=== PATIENT | female | born 1990 | race Two or more races ===

== ENCOUNTER 2017-09-20 21:57 | Observation (INO) | payer SELFPAY ==
[2017-09-20] MEDS ORDERED: NS 0.9% 1000 ML* 1,000 ML IV ONE (22:07)
[2017-09-20] MEDS ORDERED: Ondansetron INJ* 2 MG/ML VIAL IV ONE (22:11)
--- NOTE | 2017-09-20 22:13 | ED ---
GI/ HPI - HPI Summary HPI Summary: 27-year-old female presents with abdominal pain and vomiting today. She states that she is on her period but it has been less and less every period. She states that she had abdominal cramps this morning. She states that she vomited once and then developed a burning in her chest and her upper abdomen. She denies any abdominal surgeries. She denies any pain with urination. She denies abnormal vaginal discharge. She denies any flank pain. She has never had these symptoms before. She denies eating anything different. She states that is having a burning in her chest now. She denies any fever or diarrhea. She took ibuprofen for her cramps this morning. She states abdominal pain is diffuse but is greatest in pelvic. She has an IUD. She has history of ovarian cysts. She does have von willebrand disease. - History of Current Complaint Chief Complaint: EDAbdPain Time Seen by Provider: 09/20/17 22:03 Stated Complaint: ABD PAIN Pain Intensity: 7 - Allergy/Home Medications Allergies/Adverse Reactions: Allergies Allergy/AdvReac Type Severity Reaction Status Date / Time aspirin Allergy See Comment Verified 09/20/17 22:07 Home Medications: Home Medications Levonorgestrel (Iud) [Mirena IUD] 20 mcg IU DAILY 09/20/17 [History Confirmed ] PMH/Surg Hx/FS Hx/Imm Hx Endocrine/Hematology History: Reports: Other Endocrine/Hematological Disorders - von willebrand disease Cardiovascular History: Denies: Hx Myocardial Infarction Infectious Disease History: No Infectious Disease History: Denies: Traveled Outside the [place] in Last 30 Days - Family History Known Family History: Negative: Renal Disease Review of Systems Negative: Fever Negative: Chest Pain Positive: Shortness Of Breath Positive: Abdominal Pain, Vomiting, Nausea. Negative: Diarrhea All Other Systems Reviewed And Are Negative: Yes Physical Exam Triage Information Reviewed: Yes Vital Signs On Initial Exam: Initial Vitals Temp Pulse Resp BP Pulse Ox 99.1 F 91 15 132/80 100 09/20/17 22:05 09/20/17 22:05 09/20/17 22:05 09/20/17 22:05 09/20/17 22:05 Vital Signs Reviewed: Yes Appearance: Positive: Pain Distress Skin: Positive: Warm, Dry Head/Face: Positive: Normal Head/Face Inspection Eyes: Positive: Normal, Conjunctiva Clear Respiratory/Lung Sounds: Positive: Clear to Auscultation, Breath Sounds Present Cardiovascular: Positive: Normal, RRR Abdomen Description: Positive: Soft, Other: - severe diffuse tenderness greatest suprapubic, rebound present, neg obturator. Negative: CVA Tenderness ( R), CVA Tenderness (L) Bowel Sounds: Positive: Present Musculoskeletal: Positive: Normal Neurological: Positive: Normal Psychiatric: Positive: Normal Diagnostics - Vital Signs Vital Signs Temp Pulse Resp BP Pulse Ox 09/20/17 22:05 99.1 F 91 15 132/80 100 - Laboratory Result Diagrams: 09/20/17 23:20 09/20/17 23:20 Lab Statement: Any lab studies that have been ordered have been reviewed, and results considered in the medical decision making process. - Ultrasound No standard instances Ultrasound Interpretation: Positive (See Comments) - 10cm heterogenous left adnexal mass with small to moderate amount of pelvic free fluid. Ultrasound Interpretation Completed By: Radiologist Re-Evaluation - Re-Evaluation First Eval Re-Evaluation Time: 23:54 Change: Improved Comment: feeling better but if moves pain is 10 out of 10. no more chest pain GIGU Course/Dx - Course Course Of Treatment: 27-year-old female presents with vomiting today. She states that she is on her period. She states that she had abdominal cramps this morning. She states that she vomited once and then developed a burning in her chest and her upper abdomen. She denies any abdominal surgeries. She denies any pain with urination. She denies abnormal vaginal discharge. She denies any flank pain. She has never had these symptoms before. She denies eating anything different. She states that is having a burning in her chest now. She denies any fever or diarrhea. She took ibuprofen for her cramps this morning. She states abdominal pain is diffuse but is greatest in pelvic. She has an IUD. on exam lungs CTA. severe diffuse tenderness greatest in pelvic region. u/s shows mass in left ovary at 10cm. wbc elevated at 14. crp normal. hcg normal. discussed with dr garcias who will see in ED due to extreme pain of patient. dr garcias saw patient in ED and will take to the OR. - Diagnoses Differential Diagnoses - Female: Gastroenteritis (Viral), Gastroenteritis ( Bacterial), Ovarian Cyst, Urinary Tract Infection Provider Diagnoses: Abdominal pain, Ovarian mass, left Discharge - Sign-Out/Discharge Documenting (check all that apply): Discharge - Discharge Plan Condition: Stable Disposition: ADMITTED TO [facility] Referrals: No Primary Care Phys,NOPCP [Primary Care Provider] - - Billing Disposition and Condition Condition: STABLE Disposition: [facility] [place]
[2017-09-20] MEDS ORDERED: Ketorolac INJ* 30 MG/ML 1 ML VIAL IV PUSH ONE (22:15)
[2017-09-20] MEDS ORDERED: Morphine INJ* 4 MG/ML 1 ML SYRINGE (NEW SYRINGE VERSION) IV ONE (23:02)
[2017-09-20 23:33] LABS: ABS Basophils 0 10^3/ul (0-0.2); ABS Eosinophils 0 10^3/ul (0-0.6); ABS Monocytes 0.8 10^3/ul (0-0.8); ABS Neutrophils 12.5 10^3/ul (1.5-7.7); ABS Nucleated RBC 0 10^3/ul; Eosinophil % 0.2 % (0-6); Hematocrit 35 % (35-47); Hemoglobin 11.8 g/dl (12.0-16.0); Lymphocyte % 6.7 % (25-47); Mean Corpuscular HGB Conc 34 g/dl (31-36); Mean Corpuscular Hemoglobin 30 pg (27-31); Mean Corpuscular Volume 89 fL (80-97); Mean Platelet Volume 7.3 um3 (7.4-10.4); Nucleated Red Blood Cells % 0; Platelet Count 279 10^3/ul (150-450); Red Blood Count 3.91 10^6/ul (4.0-5.4); Red Cell Distribution Width 13 % (10.5-15); White Blood Count 14.4 10^3/ul (3.5-10.8)
[2017-09-20] MEDS ORDERED: Morphine VIAL* 4 MG/ML VIAL (1 ml vial) IV ONE (23:43)
[2017-09-20 23:52] LABS: EGFR Non-African American 120.8 (>60)
[2017-09-21] LABS: Urine Appearance Clear; Urine Blood 1+ (Negative); Urine Color Yellow; Urine Ketones Negative (Negative); Urine Protein Negative (Negative); Urine Specific Gravity 1.013 (1.010-1.030); Urine Urobilinogen Negative (Negative)
[2017-09-21] MEDS ORDERED: Ondansetron INJ* 2 MG/ML VIAL IV ONE (00:43)
[2017-09-21] MEDS ORDERED: Dexamethasone IV* 4 MG/ML 1 ML (4 MG) ONE (03:02)
[2017-09-21] MEDS ORDERED: Ondansetron INJ* 2 MG/ML VIAL ONE (03:02)
[2017-09-21] MEDS ORDERED: Atracurium* 10 MG/ML 10 ML VIAL ONE (03:02)
[2017-09-21] MEDS ORDERED: fentaNYL* 50 MCG/ML 2 ML VIAL (100 MCG VIAL) ONE (03:02)
[2017-09-21] MEDS ORDERED: Propofol* 10 MG/ML 20 ML BTL IV PUSH ONE (03:02)
[2017-09-21] MEDS ORDERED: Midazolam* 1 MG/ML 5 ML VIAL (5 MG) ONE (03:02)
[2017-09-21] MEDS ORDERED: Bupivacaine 0.25% SDV* 30 ML ONE (03:10)
[2017-09-21] MEDS ORDERED: Phenylephrine IV* 40 MCG/ML 10 ML SYRINGE ONE (03:34)
[2017-09-21] MEDS ORDERED: oxyCODONE TAB* 5 MG TAB PO PRN (03:56)
[2017-09-21] MEDS ORDERED: Ondansetron INJ* 2 MG/ML VIAL IV PRN (03:56)
[2017-09-21] MEDS ORDERED: Naloxone* 0.4 MG/ML 1 ML VIAL IV PRN (03:56)
[2017-09-21] MEDS ORDERED: HYDROcodone/ACETAMIN 5-325 MG* 1 TAB PO PRN (03:56)
[2017-09-21] MEDS ORDERED: HYDROmorphone INJ* 1 MG/ML CARPUJECT SYRINGE IV PRN (03:56)
[2017-09-21] MEDS ORDERED: DiMENhydriNATE IV* 50 MG/ML VIAL IV PUSH PRN (03:56)
[2017-09-21] MEDS ORDERED: fentaNYL* 50 MCG/ML 2 ML VIAL (100 MCG VIAL) IV PRN (03:56)
[2017-09-21] MEDS ORDERED: Glycopyrrolate IV* 0.2 MG/ML 1 ML VIAL ONE ×2 (04:21→04:25)
[2017-09-21] MEDS ORDERED: Neostigmine Methylsulfate* 1 MG/ML 10 ML VIAL (1 mg/ml) ONE (04:21)
[2017-09-21] MEDS ORDERED: oxyCODONE/Acetamin 5/325 MG* TAB PO PRN (04:44)
[2017-09-21] MEDS ORDERED: oxyCODONE/Acetamin 5/325 MG* TAB ONE (05:20)
[2017-09-21 07:58] VITALS: BP 119/60
--- NOTE | 2017-09-21 08:20 | RAD ---
HISTORY: Pelvic pain COMPARISONS: None TECHNIQUE: Multiple transverse and longitudinal ultrasound images were obtained of the pelvis using grayscale, color Doppler, and spectral Doppler imaging using the transabdominal transducer. FINDINGS: UTERUS: The uterus measures 7.5 x 3.2 x 4.7 cm. The uterus is normal in shape, size, contour, and echotexture. ENDOMETRIUM: The endometrial stripe is smooth. The endometrium measures 0.4 cm in thickness. An IUD is noted centrally within the endometrial cavity towards the fundus. CUL-DE-SAC: There is simple fluid noted within the pelvic cul-de-sac. RIGHT OVARY: The right ovary measures 3.5 x 1.5 x 2.9 cm. Normal arterial and venous waveforms are identifiable within the ovary on spectral Doppler imaging. LEFT OVARY: Within the expected location of the left ovary, there is a heterogeneously hyperechoic mass with internal vascularity measuring approximately 8.9 x 10 x 6.5 cm in size. The ovaries cannot be distinguished from this mass. Arterial and venous flow is noted on spectral tracings of this mass. BLADDER: The visualized bladder is unremarkable. OTHER: None IMPRESSION: 1. 10 CM LEFT ADNEXAL MASS. THE DIFFERENTIAL INCLUDES ECTOPIC , PRIMARY OVARIAN NEOPLASM, OR LARGE HEMORRHAGIC CYST, THOUGH THIS LESION IS VASCULARIZED AND HEMORRHAGIC CYST IS NOT FAVORED. 2. IUD. 3. THERE IS SIMPLE FLUID NOTED WITHIN THE PELVIS. PRELIMINARY FINDINGS WERE DISCUSSED WITH DR. BASS BY DR. NGO AT APPROXIMATELY 11:43 PM ON SEPTEMBER 20, 2017
--- NOTE | 2017-09-21 09:59 | PN ---
Work Excuse - Work Note Work Note: The above employee has been evaluated on 09/21/17. The physician has instructed the employee concerning further work as described below. Work Status: [Out of work until 09/28/17 and/or seen in the office. ] Lolita Tam MD 09/21/17 0956
== END 2017-09-21 11:05 | disposition home or self-care (01) ==
LOC: ED 21:57 → OR 09-21 02:11 → SSU 09-21 05:46
PROVIDERS: ADMIT Obstetrics & Gynecology; ATTEND Obstetrics & Gynecology
PROC: 0WJP4ZZ Inspection of Gastrointestinal Tract, Percutaneous Endoscopic Approach (ICD-10-PCS; principal; 2017-09-21 04:02)
DX: N83.202 Unspecified ovarian cyst, left side (principal); R10.9 Unspecified abdominal pain; R06.02 Shortness of breath; R11.2 Nausea with vomiting, unspecified; Z97.5 Presence of (intrauterine) contraceptive device
CPT/HCPCS: 36415; 76856; 80053; 81003; 81015; 83690; 84702; 85025; 86141; 87077; 87086; 96374; 96375; 99285; A9270-GY; G0378; J1100; J1885; J2250; J2270; J2405; J2704; J2710; J3010

== ENCOUNTER 2018-05-10 18:07 | Emergency (ER) | payer OTHER ==
[2018-05-10] MEDS ORDERED: Albuterol/Ipratropium NEB.SOL* Albuterol 2.5 MG/Ipratropium 0.5 MG 3 ML INH ONE (19:56)
[2018-05-10] MEDS ORDERED: Ibuprofen TAB* 600 MG PO ONE (19:56)
[2018-05-10] MEDS ORDERED: Acetaminophen TAB* 325 MG PO ONE (19:56)
[2018-05-10] MEDS ORDERED: Albuterol 2.5 MG/3 ML NEB.SOL* (0.083%) INH ONE (19:57)
--- NOTE | 2018-05-10 20:10 | ED ---
Respiratory - HPI Summary HPI Summary: This patient is a 27 year old female presenting to [facility] accompanied by male host/hostess ground with a chief complaint of SOB and cough since 1 and a half weeks ago. Patient states that she also developed a fever yesterday of 101. She presents to ED because her SOB is persisting and she recently coughed up a small amount of blood. The pain is rated 7/10 in severity. Symptoms aggravated by nothing. Symptoms alleviated by nothing. The patient treated the sx with ibuprofen at 1400 today to very little relief. Patient additionally reports a sore throat, sinus congestion. Patient notes a hx of asthma. - History of Current Complaint Chief Complaint: EDThroatPain Stated Complaint: COLD LIKE SYMTOMS/FEVER Time Seen by Provider: 05/10/18 19:50 Hx Obtained From: Patient Onset/Duration: Sudden Onset, Still Present Current Severity: Moderate Pain Intensity: 7 Character: Cough (Productive) Sputum Amount: Scant Sputum Color: Red (Blood) Aggravating Factor(s): Nothing Alleviating Factor(s): Nothing Associated Signs and Symptoms: Fever, SOB, Sinus Discomfort - Allergy/Home Medications Allergies/Adverse Reactions: Allergies Allergy/AdvReac Type Severity Reaction Status Date / Time aspirin Allergy See Comment Verified 05/10/18 18:40 dextromethorphan Allergy Tachycardia Verified 05/10/18 20:25 PMH/Surg Hx/FS Hx/Imm Hx Previously Healthy: No Endocrine/Hematology History: Reports: Other Endocrine/Hematological Disorders - von willebrand disease Denies: Hx Anticoagulant Therapy Cardiovascular History: Reports: Other Cardiovascular Problems/Disorders - HR fast child Denies: Hx Myocardial Infarction GI History: Reports: Hx Ulcer Musculoskeletal History: Reports: Hx Scoliosis Comment Only: Other Musculoskeletal History - Curve spine Sensory History: Reports: Hx Contacts or Glasses Denies: Hx Hearing Aid Opthamlomology History: Reports: Hx Contacts or Glasses Psychiatric History: Reports: Hx Depression Infectious Disease History: No Infectious Disease History: Denies: Traveled Outside the [place] in Last 30 Days - Family History Known Family History: Negative: Renal Disease - Social History Occupation: Employed Full-time Alcohol Use: None Hx Substance Use: No Substance Use Type: Reports: None Hx Tobacco Use: No Smoking Status (MU): Never Smoked Tobacco Review of Systems Positive: Fever Positive: Sore Throat, Other - sinus congestion Positive: Shortness Of Breath, Cough - bloody sputum All Other Systems Reviewed And Are Negative: Yes Physical Exam - Summary Physical Exam Summary: VITAL SIGNS: Reviewed. GENERAL: Patient is a well-developed and nourished female who is lying comfortable in the stretcher. Patient is not in any acute respiratory distress. HEAD AND FACE: No signs of trauma. No ecchymosis, hematomas or skull depressions. No sinus tenderness. EYES: PERRLA, EOMI x 2, No injected conjunctiva, no nystagmus. EARS: Hearing grossly intact. Ear canals and tympanic membranes are within normal limits. MOUTH: Oropharynx within normal limits. NECK: Supple, trachea is midline, no JVD, no carotid bruit, no c-spine tenderness, neck with full ROM. Pharyngeal hyperemia no exudate, bilateral upper cervical adenopathy CHEST: Symmetric, no tenderness at palpation LUNGS: Clear to auscultation bilaterally. No wheezing or crackles. CVS: Regular rate and rhythm, S1 and S2 present, no murmurs or gallops appreciated. ABDOMEN: Soft, non-tender. No signs of distention. No rebound no guarding, and no masses palpated. Bowel sounds are normal. EXTREMITIES: FROM in all major joints, no edema, no cyanosis or clubbing. NEURO: Alert and oriented x 3. No acute neurological deficits. Speech is normal and follows commands. SKIN: Dry and warm Triage Information Reviewed: Yes Vital Signs On Initial Exam: Initial Vitals Temp Pulse Resp BP Pulse Ox 99.5 F 117 20 147/106 98 05/10/18 18:36 05/10/18 18:36 05/10/18 18:36 05/10/18 18:36 05/10/18 18:36 Vital Signs Reviewed: Yes Diagnostics - Vital Signs Vital Signs Temp Pulse Resp BP Pulse Ox 05/10/18 19:53 99.8 F 111 99 05/10/18 18:36 99.5 F 117 20 147/106 98 - Laboratory Lab Statement: Any lab studies that have been ordered have been reviewed, and results considered in the medical decision making process. Disposition - Course Course Of Treatment: This patient is a 27 year old female presenting to [facility] accompanied by male host/hostess ground with a chief complaint of SOB and cough since 1 and a half weeks ago. Patient states that she also developed a fever yesterday of 101. She presents to ED because her SOB is persisting and she recently coughed up a small amount of blood. The pain is rated 7/10 in severity. Symptoms aggravated by nothing. Symptoms alleviated by nothing. The patient treated the sx with ibuprofen at 1400 today to very little relief. Patient additionally reports a sore throat. Patient notes a hx of asthma. In the ED course the patient was given prednisone 60mg PO, Ibuprofen 600mg PO, Albuterol INH, Acetaminophen 975mg PO. Patient will be discharged with a dx of viral syndrome, asthma and is recommended to follow up with PCP in 2 days. The patient is agreeable with this plan. - Diagnoses Provider Diagnoses: Viral syndrome, Asthma Discharge - Sign-Out/Discharge Documenting (check all that apply): Patient Departure - Discharge Plan Condition: Stable Disposition: HOME Prescriptions: Albuterol HFA INHALER* [Ventolin HFA Inhaler*] 2 puff INH Q6H PRN #1 mdi PRN Reason: Sob/Wheezing predniSONE TAB* [Deltasone 20 MG TAB*] 40 mg PO DAILY #6 tab Patient Education Materials: Asthma (ED), Viral Syndrome (ED) Forms: *Work Release Referrals: No Primary Care Phys,NOPCP [Primary Care Provider] - 2 Days Additional Instructions: Return to the ED for any new or worsening symptoms. - Attestation Statements Document Initiated by Scribe: Yes Documenting Scribe: Renetta Myers Provider For Whom Scribe is Documenting (Include Credential): Lora Lemus MD Scribe Attestation: Renetta Pierre, scribed for Lora Lemus MD on 05/10/18 at 2042. Status of Scribe Document: Ready
[2018-05-10 20:31] VITALS: BP 158/88
[2018-05-10] MEDS ORDERED: predniSONE TAB* 20 MG PO ONE (20:39)
[2018-05-10] MEDS ORDERED: Albuterol HFA INHALER* 8 gm MDI INH SCH (21:00)
== END 2018-05-10 20:55 | disposition home or self-care (01) ==
LOC: ED 18:07
DX: B34.9 Viral infection, unspecified (principal); R50.9 Fever, unspecified; R06.02 Shortness of breath; R05 Cough; J45.909 Unspecified asthma, uncomplicated
CPT/HCPCS: 36415; 86308; 87651; 99282; A9270-GY; J7512